=== PATIENT | male | born 1995 | race Two or more races ===

== ENCOUNTER 2019-01-17 17:52 | Emergency (ER) | payer MEDICAID, OTHER ==
[~2019-01-17] VITALS: Ht 177.8 cm; Wt 107.5 kg
[2019-01-17 17:54] VITALS: BP 108/66
[2019-01-17] MEDS ORDERED: LORAZEPAM 1 MG TABLET ONE (18:17)
[2019-01-17] MEDS ORDERED: OLANZAPINE 5 MG TABLET ONE (18:17)
[2019-01-17] MEDS ORDERED: OLANZAPINE 5 MG TABLET PO ONE (18:30)
[2019-01-17] MEDS ORDERED: LORAZEPAM 1 MG TABLET PO ONE (18:30)
== END 2019-01-17 19:30 | disposition home or self-care (01) ==
LOC: ER 17:52
DX: F41.9 Anxiety disorder, unspecified (principal); F25.9 Schizoaffective disorder, unspecified; Z60.2 Problems related to living alone